=== PATIENT | male | born 1995 | race Caucasian/White ===

== ENCOUNTER → 2023-01-03 | Outpatient (CLI) | payer BC, SELFPAY ==
[2023-01-03 10:19] LABS: T4 Free Direct 1.25 ng/dL (0.76-1.46); Thyroid Stim Hormone (TSH) 0.78 uIU/mL (0.358-3.74)
== END | disposition home or self-care (01) ==
LOC: LAB 09:45
PROVIDERS: PCP Nurse Practitioner Family; Referring Provider Internal Medicine Endocrinology, Diabetes & Metabolism; Visit Provider Internal Medicine Endocrinology, Diabetes & Metabolism
DX: E03.8 Other specified hypothyroidism (principal); E06.3 Autoimmune thyroiditis
CPT/HCPCS: 36415; 84439; 84443

== ENCOUNTER → 2023-04-28 | Outpatient (CLI) | payer BC, SELFPAY ==
--- NOTE | 2023-04-28 17:26 | US_ITS ---
STUDY: THYROID ULTRASOUND REASON FOR EXAM: Male, 27 years old. NONTOXIC DIFFUSE GOITER TECHNIQUE: Ultrasound evaluation of the thyroid was performed with real-time and static miranda-scale imaging. COMPARISON: None. FINDINGS: RIGHT LOBE: The right lobe of the thyroid gland is enlarged and measures 5.8 cm x 2.1 cm x 2.2 cm. There is a heterogeneous echotexture. There are no demonstrated solid, cystic or complex lesions. LEFT LOBE: The left lobe of the thyroid gland is enlarged and measures 5.5 cm x 1.8 cm x 1.9 cm. There is a heterogeneous echotexture. There are no demonstrated solid, cystic or complex lesions. ISTHMUS: The isthmus measures 4.6 mm. The regional lymph nodes are normal. US/Thyroid IMPRESSION: Diffuse heterogeneous enlargement of the thyroid Electronically Signed: Salvador Campbell MD at 15:14 EST ,
== END | disposition home or self-care (01) ==
LOC: US 17:23
PROVIDERS: PCP Nurse Practitioner Family; Referring Provider Internal Medicine Endocrinology, Diabetes & Metabolism; Visit Provider Internal Medicine Endocrinology, Diabetes & Metabolism
DX: E04.0 Nontoxic diffuse goiter (principal)
CPT/HCPCS: 76536

== ENCOUNTER 2023-12-25 06:22 | Emergency (ER) | payer BC, SELFPAY ==
[2023-12-25 06:23] VITALS: BP 160/103; PULSE 94; RESP 16; TEMP 36.1; O2SAT 96; BMI 39.9
--- NOTE | 2023-12-25 06:36 | CT_ITS ---
STUDY: CT ABDOMEN AND PELVIS WITH CONTRAST REASON FOR EXAM: Male, 28 years old. RLQ PAIN. RADIATION DOSAGE (If Supplied By Facility): CTDIvol = ( 15.37 ) mGy, DLP = ( 1462.14 ) mGycm TECHNIQUE: Transaxial images were obtained from the dome of the diaphragm to the symphysis pubis without oral contrast. IV 100mL Isovue-[id number] was administered. Sagittal and coronal images were reconstructed. Individualized dose optimization techniques were used for this CT. COMPARISON: None. FINDINGS: The visualized lung bases are unremarkable. The visualized portions of the heart are within normal limits. There is decreased attenuation of the liver consistent with steatosis. Normal gallbladder and extrahepatic biliary system. Normal spleen. Normal pancreas. Normal bilateral adrenal glands. Mild degree of right hydronephrosis and right hydroureter due to a 3.5 mm calculus in the midportion of the right ureter. Normal left kidney. Normal visualized stomach. Normal small intestine. Normal colon. The appendix is visualized and appears normal. Normal abdominal aorta. Normal inferior vena cava. Normal retroperitoneum. Normal urinary bladder. Small benign-appearing bilateral inguinal lymph nodes. Normal osseous structures. CT/Abdomen/Pelvis W IV Cont ONLY IMPRESSION: 3.5 mm calculus in the midportion of the right ureter causing mild degree of right hydronephrosis and right hydroureter. Diffuse fatty infiltration of the liver. Electronically Signed: Salavdor Campbell MD at 8:03 EDT ,
--- NOTE | 2023-12-25 06:37 | ED.VIS.GI ---
HPI HPI - GI History of Present Illness Chief Complaint: Abd Pain Informant: patient and spouse/S.O. Narrative Narrative: Presenting awakening 3 AM pain right lower quadrant mild pain to the back. He urinated without any issues. Last bowel movement yesterday evening nonbloody. Daily bowel movements. No fevers. Nausea without vomiting. No abdominal surgeries in the past. Allergy minocycline. 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 No medications taken prior to arrival. Reports pain is dull and achy. 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 HTN (hypertension) Ana's disease Hypothyroid Encounter for examination required by Department of Transportation (DOT) Home Medications ?Medication ?Instructions ?Recorded ?Last Taken ?Type amlodipine 10 mg tablet 10 mg PO DAILY 07/31/22 Unknown History ibuprofen 600 mg tablet 600 mg PO Q6H PRN PRN pain #20 12/25/23 Unknown Rx TABLETS levothyroxine 200 mcg tablet 200 mcg PO DAILY 12/25/23 Unknown History ondansetron 4 mg disintegrating 4 mg PO Q8H PRN PRN Nausea #10 tabs 12/25/23 Unknown Rx tablet oxycodone-acetaminophen 5 mg-325 1 tab PO Q6H PRN PRN Pain 3 days 12/25/23 Unknown Rx mg tablet #12 TABLETS Allergy/AdvReac Type Severity Reaction Status Date / Time minocycline Allergy Hives Verified 12/25/23 06:23 Family History Father Hypertension Mother Thyroid disorder Other Cancer Surgical History History of tonsillectomy and adenoidectomy Social History household members: spouse housing: house Smoking Status: Current every day smoker tobacco type: smokeless tobacco alcohol intake: never substance use type: does not use caffeine: No what type of physical activity do you participate in: none do you feel safe at home: Yes ROS ROS ED Constitutional Constitutional ED: Denies chills, fever(s) or sweats Eyes Eyes: Denies change in vision ENT ENT ED: Denies dysphagia or sore throat Cardiovascular Cardiovascular: Denies chest pain, leg edema, palpitations or racing heartbeat Respiratory/Chest Respiratory/Chest: Denies cough, dyspnea or dyspnea on exertion Gastrointestinal Gastrointestinal: Reports abdominal pain and nausea; Denies diarrhea or vomiting Genitourinary Genitourinary ED: Denies dysuria, hematuria or urinary frequency Musculoskeletal Musculoskeletal: Denies back pain, extremity pain or neck pain Integumentary Denies rash or wounds Neurologic Neurologic: Denies headache(s), paresthesias or weakness EXAM Physical Exam Const Vital Signs: 12/25/23 06:23 12/25/23 08:23 Temperature 97 F L Temperature Source Temporal Pulse Rate 94 88 Respiratory Rate 16 16 Blood Pressure 160/103 H 138/84 H Blood Pressure Mean 122 102 Pulse Ox 96 94 Oxygen Delivery Method Room Air Positive well nourished and well developed General Appearance ED: well developed and NAD HEENT Reports moist mucous membranes normocephalic and atraumatic Eyes EOMs intact bilaterally and conjunctivae normal General Eye ED: Yes normal appearance of both eyes Neck no lymphadenopathy and supple General: Negative for tenderness Chest Wall Chest: Negative for tenderness Resp normal respiratory effort and normal air movement Effort and Inspection: symmetric chest movement; Negative for respiratory distress Cardio regular rate, regular rhythm and no murmurs Peripheral Pulses: pulses 2+ throughout GI normal to inspection, nondistended, normoactive bowel sounds GI Narrative: Tender palpation right lower quadrant. Negative West's. No guarding or rebound. Negative Rovsing's. Palpation: Negative for guarding or rebound tenderness present Back/Spine no CVA tenderness and no thoracic nor lumbar tenderness Extremity normal to inspection General Extremety ED: Negative for edema or tenderness General Extremity: Negative for edema Neuro oriented x3 and no sensory deficits noted Sensorium / Orientation: awake and alert Skin no rashes or lesions noted and no wounds MDM MDM MDM Narrative Medical decision making narrative: Interventions / MDM: Differential diagnosis: Kidney stone Diagnosis considered but do not suspect: Appendicitis however CT normal. My EKG interpretation: N/A Imaging independently reviewed and interpreted by myself: CT abdomen pelvis IV contrast: Normal appendix, 3.5 mm right mid ureteral stone with mild hydronephrosis. External documents reviewed: N/A Test considered but not ordered:N/A ED course: Tender right lower quadrant dull aching sensation. Basic labs urine ordered. IV established fluids Toradol Zofran. CT scan abdomen pelvis IV contrast ordered for further evaluation. Pain controlled on reevaluation. Labs normal white count urine with hematuria no infection. CT scan normal appendix, mid ureteral stone noted. Urine strainer for home. Prescription for pain control and antiemetics. Follow-up with urology as an outpatient. Return precautions. All questions were answered. Re-evaluation: stable Disposition discussed with patient/family/significant other: Patient and significant other Case discussed with consulting clinician: N/A This note was generated with DrDoctor dictation software. It may contain incorrect words, spelling, and punctuation that were not noted in checking the note before signing. Lab Data Attestation: I reviewed the patient's lab results. Labs: Laboratory Results - last 24 hr 12/25/23 12/25/23 06:50 07:10 WBC 8.7 RBC 5.39 Hgb 15.7 Hct 46.0 MCV 85.3 MCH 29.1 MCHC 34.1 RDW Std Deviation 40.0 RDW Coeff of Vicky 13.1 Plt Count 275 MPV 9.9 Immature Gran % (Auto) 0.500 Neut % (Auto) 75.9 H Lymph % (Auto) 16.6 L [place] % (Auto) 6.0 Eos % (Auto) 0.7 Baso % (Auto) 0.3 Absolute Neuts (auto) 6.6 Absolute Lymphs (auto) 1.44 Nucleated RBC % 0 Sodium 138 Potassium 4.4 Chloride 106 Carbon Dioxide 26.0 Anion Gap 6 BUN 20 H Creatinine 1.20 Estim Creat Clear Calc 115.93 Est GFR (MDRD) Af Amer 93 Est GFR (MDRD) Non-Af 77 BUN/Creatinine Ratio 16.7 Glucose 133 H Calcium 9.7 Urine Color Yellow Urine Clarity Sl. Cloudy Urine pH 7.0 Ur Specific [place] 1.015 Urine Protein 30 H Urine Glucose (UA) Normal Urine Ketones Negative Urine Occult Blood 250 H Urine Nitrite Negative Urine Bilirubin Negative Urine Urobilinogen Normal Ur Leukocyte Esterase Negative Urine RBC > 100 SEEN Urine WBC 0 SEEN Ur Squamous Epith Cells 0 SEEN Amorphous Sediment 2+ Urine Bacteria 1+ Urine Mucus 0 SEEN Radiography Diagnostic Testing: Clinical Impression(s) from Imaging Studies Abdomen/Pelvis CT 12/25/23 06:36 IMPRESSION: 3.5 mm calculus in the midportion of the right ureter causing mild degree of right hydronephrosis and right hydroureter. Diffuse fatty infiltration of the liver. Electronically Signed: Salvador Campbell MD at 8:03 EDT , Discharge Plan Triage Chief Complaint: Abd Pain ED Provider: Juan A Fung Dx/Rx/DC Orders Clinical Impression: Kidney stone on right side, Hematuria Instructions: ED Hematuria, ED Kidney Stone with Pain Prescriptions: New oxycodone-acetaminophen 5-325 mg tablet 1 tab PO Q6H PRN PRN (Reason: Pain) 3 Days Qty: 12 0RF ibuprofen 600 mg tablet 600 mg PO Q6H PRN PRN (Reason: pain) Qty: 20 0RF ondansetron 4 mg tablet,disintegrating 4 mg PO Q8H PRN PRN (Reason: Nausea) Qty: 10 0RF No Action amlodipine 10 mg tablet 10 mg PO DAILY Patient Comments: TAKE 1 TABLET BY MOUTH EVERY DAY levothyroxine 200 mcg tablet 200 mcg PO DAILY Primary Care Provider: Katy Fuller Referrals: Katy Fuller, ISIAH-C [Primary Care Provider] - Hosea Walls MD [Med Staff - Active Staff] - 1 Week Activity Restrictions/Additional Instructions: 3.5 mm stone right mid ureteral. Urine with blood and no infection. Strain your urine. Take medication as prescribed. If symptoms worsen not controlled with medication return to the ED for reevaluation. Print Language: Fijian Disposition Disposition: Home, Self Care Discharge Date/Time: 12/25/23 08:26
[2023-12-25] MEDS: Ketorolac 15 MG/ML Vial IV (06:53)
[2023-12-25] MEDS: Ondansetron 4 MG/2 ML Vial IV (06:53)
[2023-12-25] MEDS: 0.9% Normal Saline (1000mL) 1,000 ML 125 ML IV (06:53)
[2023-12-25 07:07] LABS: Absolute Lymphocyte Count 1.44 X10^3/uL (0.83-4.51); Absolute Neutrophil Count 6.6 X10^3/uL (2.0-7.7); Basophil# 0.03 X10^3/uL; Basophil% 0.3 % (0-1); Eosinophil# 0.06 X10^3/uL; Eosinophils% 0.7 % (0-5); Hemoglobin 15.7 g/dL (13.0-16.5); Lymphocyte # 1.44 X10^3/ul (0.83-4.51); Lymphocyte % 16.6 % (19-41); Mean Corp Hgb Conc 34.1 g/dL (32-36); Mean Corpuscular Hgb 29.1 pg (27.0-32.0); Mean Corpuscular Volume 85.3 fL (80-94); Mean Platelet Vol. 9.9 fl (6.2-12.0); Monocyte# 0.52 X10^3/uL; NRBC Flagged by Analyzer 0 % (0-5); Neutrophil # 6.58 X10^3/uL (2.7-7.7); Neutrophil % 75.9 % (47-70); Platelet Count 275 K/mm3 (150-450); RBC Distribution Width CV 13.1 % (11.6-14.6); Red Blood Count 5.39 M/mm3 (4.6-6.2); White Blood Count 8.7 K/mm3 (4.4-11.0)
[2023-12-25 07:14] LABS: Mucous, Urine 0 SEEN /hpf (<or=2+); Squamous Epithelial Cells - UA 0 SEEN /hpf (0-5); White Blood Cells 0 SEEN /hpf (0-5)
[2023-12-25 07:21] LABS: Anion Gap 6 (5-15); BUN 20 mg/dL (7-18); BUN/Creat Ratio 16.7 RATIO (10-20); Calcium,Total 9.7 mg/dL (8.5-10.1); Chloride 106 mmol/L (98-107); EST Glomerular Filtration Rate 77 mL/min (>60); Est Glom Filt Rate - Afr Amer 93 mL/min (>60); Estimated Creatinine Clearance 115.93 ml/min; Glucose 133 mg/dL (74-106); Potassium 4.4 mmol/L (3.5-5.1); Sodium Level 138 mmol/L (136-145)
[2023-12-25 07:24] LABS: Color, Urine Yellow (Yellow); Glucose, Dipstick Normal (Normal); Ketone-Dipstick Negative (Negative); Leukocyte Esterase-Dipstick Negative /ul (Negative); Nitrite-Dipstick Negative (Negative); Occult Blood-Urine 250 /ul (Negative); Protein-Dipstick 30 mg/dl (Negative); Specific Gravity, Urine 1.015 (1.002-1.030); Urine Bilirubin Dipstick Negative (Negative); Urine Clarity Sl. Cloudy (Clear); Urine Urobilinogen Normal (Normal)
[2023-12-25 07:39] LABS: Amorphous Sediment 2+; Bacteria 1+ /hpf (None Seen); Red Blood Cells-Urine > 100 SEEN /hpf (0-5)
[2023-12-25 08:23] VITALS: BP 138/84; PULSE 88; RESP 16; O2SAT 94
== END 2023-12-25 08:26 | disposition home or self-care (01) ==
PROVIDERS: Emergency Provider Emergency Medicine; PCP Nurse Practitioner Family; Visit Provider Emergency Medicine
DX: N13.2 Hydronephrosis with renal and ureteral calculous obstruction (principal); R31.9 Hematuria, unspecified; I10 Essential (primary) hypertension; E03.9 Hypothyroidism, unspecified
CPT/HCPCS: 74177; 80048; 81001; 85025; 96361; 96374; 96375; 99283; J7030; Q9967; A4216; J2405

== ENCOUNTER 2023-12-26 11:00 | Observation (INO) | payer BC, SELFPAY ==
[2023-12-26 11:01] VITALS: BP 144/96; PULSE 76; RESP 15; TEMP 36.4; O2SAT 95; BMI 39.5
[2023-12-26 11:11] VITALS: BP 144/76; PULSE 88; RESP 16; O2SAT 95
--- NOTE | 2023-12-26 11:26 | EX.ED.DYSGE1 ---
HPI History of Present Illness Chief Complaint: Flank Pain Narrative Narrative: 28-year-old male presents with right flank pain that is intractable as he was diagnosed with a kidney stone in the mid right ureter yesterday. He states he was sent home with nausea medication, ibuprofen, and oxycodone. He is taking the medicine without relief. He states that he can last for up to 2 hours which knocks down his pain, then the pain returns full force. He presents here at the direction of the urologist, Dr. Walls, for pain control and possible admission. 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 HTN (hypertension) Ana's disease Hypothyroid Encounter for examination required by Department of Transportation (DOT) Home Medications ?Medication ?Instructions ?Recorded ?Last Taken ?Type amlodipine 10 mg tablet 10 mg PO DAILY 07/31/22 Unknown History ibuprofen 600 mg tablet 600 mg PO Q6H PRN PRN pain #20 12/25/23 Unknown Rx TABLETS levothyroxine 200 mcg tablet 200 mcg PO DAILY 12/25/23 Unknown History ondansetron 4 mg disintegrating 4 mg PO Q8H PRN PRN Nausea #10 tabs 12/25/23 Unknown Rx tablet oxycodone-acetaminophen 5 mg-325 1 tab PO Q6H PRN PRN Pain 3 days 12/25/23 Unknown Rx mg tablet #12 TABLETS Allergy/AdvReac Type Severity Reaction Status Date / Time minocycline Allergy Hives Verified 12/25/23 06:23 Family History Father Hypertension Mother Thyroid disorder Other Cancer Surgical History History of tonsillectomy and adenoidectomy Social History household members: spouse housing: house Smoking Status: Current every day smoker tobacco type: smokeless tobacco alcohol intake: never substance use type: does not use caffeine: No what type of physical activity do you participate in: none do you feel safe at home: Yes ROS ROS ED ROS Narrative Constitutional: No fever, no chills. HEENT: No sore throat. No neck pain. No loss of vision. No rhinorrhea. Cardiovascular: No chest pain. No palpitations. No pedal edema. Respiratory: No cough, no shortness of breath. Abdominal: No abdominal pain. Positive right flank pain. Genitourinary: No dysuria. No hematuria. Musculoskeletal: No myalgias. No arthralgias. Neurologic: No headaches. No dizziness. No lightheadedness. Skin: No rash. No change in color. Psychiatric: No depression. No anxiety. EXAM Physical Exam Narrative Exam Narrative: Afebrile. Vital signs noted. Regular rate and rhythm. Lungs clear to auscultation bilaterally. Abdomen soft nontender with normoactive bowel sounds. Lying comfortably on cot. Neurological examination nonfocal and nonlateralizing. Const Vital Signs: 12/26/23 11:01 12/26/23 11:11 12/26/23 13:01 Temperature 97.5 F L Temperature Source Temporal Pulse Rate 76 88 81 Respiratory Rate 15 16 18 Blood Pressure 144/96 H 144/76 H 123/78 H Blood Pressure Mean 112 98 93 Pulse Ox 95 95 94 Oxygen Delivery Method Room Air Room Air MDM MDM MDM Narrative Medical decision making narrative: I reviewed the patient's prior visit and laboratory work. He had a creatinine of 1.20. CT did show a 3.5 mm mid ureteral stone. I discussed the patient with Dr. Walls. He will be given a liter of IV fluids, morphine, Toradol, and a Flomax as in review of his medications, he had not been given a prescription for Flomax. He will be reassessed after pain medications. It was not felt that he needed a repeat CT scan or laboratory work currently. After Toradol, morphine, IV fluids, and Flomax, repeat examination shows him resting comfortably, however he states that when the pain medication wears off, he has intractable pain. He requested something stronger than Percocet for possible home use, but I told him that there was not much more that I could write for him. I was going to add Flomax as well. However, after discussion with his , the patient states that he was to be admitted. I discussed the patient with Dr. Walls who will assign him to observation for stenting as needed. Disposition is assigned observation. Patient is in stable condition. History & Record Review Discussion w/independent historian: Patient Additional record(s) reviewed:: Prior ED visit and Prior labs Management Discussion w/another healthcare provider: Chief Operations Officer (Dr. Walls) Discharge Plan Dx/Rx/DC Orders Clinical Impression: Kidney stone on right side, Intractable pain Disposition Disposition: Acute Care Hospital [facility]
[2023-12-26] MEDS: 0.9% Normal Saline (1000mL) 1,000 ML 999 ML IV (11:37)
[2023-12-26] MEDS: Morphine 4 MG/ML Syringe IV ×2 (11:38→13:56)
[2023-12-26] MEDS: Ketorolac 30 MG/ML Syringe IV (11:38)
[2023-12-26] MEDS: Tamsulosin HCl 0.4 MG Capsule PO ×2 (12:03→21:45)
[2023-12-26 13:01] VITALS: BP 123/78; PULSE 81; RESP 18; O2SAT 94
--- NOTE | 2023-12-26 13:59 | NURSING ---
MED SURG OBS BLAINE INTRACTABLE PAIN, URETERAL STONE, RIGHT
[2023-12-26 14:01] VITALS: BP 132/91; PULSE 88; RESP 17; TEMP 36.6; O2SAT 96
[2023-12-26 15:30] VITALS: BMI 39.5
[2023-12-26] MEDS: Lactated Ringers 1,000 ML 150 ML IV ×2 (16:09→21:45)
[2023-12-26] MEDS: 0.9% Saline Lock 10 ML Syringe IV (16:10)
[2023-12-26] MEDS: Morphine 2 MG/ML Syringe IV ×2 (16:10→20:17)
[2023-12-26 20:00] VITALS: BP 127/79; PULSE 76; RESP 16; TEMP 36.9; O2SAT 96
[2023-12-26] MEDS: Phenazopyridine 95 MG Tablet PO (20:16)
[2023-12-26] MEDS: Ketorolac 15 MG/ML Vial IV (20:16)
[2023-12-27 02:30] VITALS: BP 126/71; PULSE 71; RESP 16; TEMP 36.7; O2SAT 97
[2023-12-27] MEDS: Lactated Ringers 1,000 ML 150 ML IV ×3 (05:27→17:36)
--- NOTE | 2023-12-27 06:35 | RAD_ITS ---
EXAM: XR ABDOMEN, 1 VIEW CLINICAL INDICATION: kidney stone TECHNIQUE: Frontal supine view of the abdomen/pelvis. COMPARISON: No relevant prior studies available. FINDINGS: LOWER THORAX: No acute pathology. GASTROINTESTINAL TRACT: Unremarkable. Non-obstructive. No bowel or stomach distention. ORGANS: Unremarkable as visualized. No organomegaly. No abnormal calcifications. BONES/JOINTS: No acute pathology. SOFT TISSUES: No acute pathology. RAD/Abdomen Single View IMPRESSION: Non-obstructive bowel gas pattern. Electronically Signed: Feliciano Iniguez MD at 18:07 EDT ,
[2023-12-27] MEDS: Morphine 2 MG/ML Syringe IV ×2 (06:49→12:26)
[2023-12-27 08:07] VITALS: BP 135/83; PULSE 71; RESP 16; TEMP 36.8; O2SAT 96
[2023-12-27] MEDS: Tamsulosin HCl 0.4 MG Capsule PO ×2 (09:10→21:53)
--- NOTE | 2023-12-27 10:40 | PCM.HP.STD ---
HPI - General General Date of Admission: 12/26/23 Date of Service: 12/26/23 Chief Complaint: Right kidney stone HPI Narrative PABLITO BACA, is a 28 M who presents with a 4 to 5 mm stone in the mid right ureter he had severe intractable pain presented back to the emergency room with pain and we admitted the patient for pain control. We have been straining his urine he is on Flomax morphine for pain this morning looks comfortable no fevers or chills no signs of sepsis pain is under control. Still does not think he has passed a stone. KUB today I could not see the stone on x-ray. 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 HTN (hypertension) Ana's disease Hypothyroid Encounter for examination required by Department of Transportation (DOT) Home Medications ?Medication ?Instructions ?Recorded ?Last Taken ?Type amlodipine 10 mg tablet 10 mg PO DAILY 07/31/22 12/26/23 10:00 History 10 mg ibuprofen 600 mg tablet 600 mg PO Q6H PRN PRN pain #20 12/25/23 Unknown Rx TABLETS levothyroxine 200 mcg tablet 200 mcg PO DAILY 12/25/23 12/26/23 06:00 History 200 mcg ondansetron 4 mg disintegrating 4 mg PO Q8H PRN PRN Nausea #10 tabs 12/25/23 12/26/23 08:00 Rx tablet 4 mg oxycodone-acetaminophen 5 mg-325 1 tab PO Q6H PRN PRN Pain 3 days 12/25/23 12/26/23 10:00 Rx mg tablet #12 TABLETS 1 TAB Allergy/AdvReac Type Severity Reaction Status Date / Time minocycline Allergy Hives Verified 12/25/23 06:23 Family History Father Hypertension Mother Thyroid disorder Other Cancer Surgical History History of tonsillectomy and adenoidectomy Social History household members: spouse housing: house Smoking Status: Current every day smoker tobacco type: smokeless tobacco alcohol intake: never substance use type: does not use caffeine: No what type of physical activity do you participate in: none do you feel safe at home: Yes ROS Constitutional Constitutional: Denies chills, fever(s) or malaise Eyes Eyes: Denies blurry vision or change in vision ENT HEENT: Reports none Cardiovascular Cardiovascular: Denies chest pain or palpitations Respiratory/Chest Respiratory/Chest: Denies cough or shortness of breath with exertion Gastrointestinal Gastrointestinal: Denies abdominal pain, constipation or diarrhea Musculoskeletal Musculoskeletal: Denies back pain, joint stiffness or joint swelling Integumentary Integumentary: Denies dry skin, jaundice, lesions or rash Neurologic Neurologic: Denies confusion, syncope or weakness Psychiatric Psychiatric: Reports none; Denies anxiety or depression Endocrine Endocrinology: Denies excessive sweating, fatigue or flushing Hematologic/Lymphatic Hematologic/Lymphatic: Denies anemia, easy bleeding or easy bruising Vital Signs Vital Signs Vital Signs: 12/26/23 11:01 12/26/23 11:11 12/26/23 13:01 Temperature 97.5 F L Temperature Source Temporal Pulse Rate 76 88 81 Pulse Strength Respiratory Rate 15 16 18 Respiratory Effort Respiratory Depth Respiratory Pattern Blood Pressure 144/96 H 144/76 H 123/78 H Blood Pressure Mean 112 98 93 Blood Pressure Source Blood Pressure Position Blood Pressure Location Pulse Ox 95 95 94 Oxygen Delivery Method Room Air Room Air 12/26/23 14:01 12/26/23 20:00 12/26/23 20:10 Temperature 97.8 F 98.5 F Temperature Source Oral Pulse Rate 88 76 Pulse Strength Respiratory Rate 17 16 Respiratory Effort Normal Respiratory Depth Normal Respiratory Pattern Blood Pressure 132/91 H 127/79 H Blood Pressure Mean 104 95 Blood Pressure Source Monitor Blood Pressure Position Semi-Fowlers Blood Pressure Location Left Arm Pulse Ox 96 96 Oxygen Delivery Method Room Air Room Air 12/26/23 22:00 12/27/23 02:30 12/27/23 03:00 Temperature 98.0 F Temperature Source Oral Pulse Rate 71 Pulse Strength Normal (2+) Respiratory Rate 16 Respiratory Effort Normal Respiratory Depth Normal Respiratory Pattern Normal Blood Pressure 126/71 H Blood Pressure Mean 89 Blood Pressure Source Monitor Blood Pressure Position Semi-Fowlers Blood Pressure Location Left Arm Pulse Ox 97 Oxygen Delivery Method Room Air Room Air 12/27/23 08:07 Temperature 98.2 F Temperature Source Oral Pulse Rate 71 Pulse Strength Respiratory Rate 16 Respiratory Effort Respiratory Depth Respiratory Pattern Blood Pressure 135/83 H Blood Pressure Mean 100 Blood Pressure Source Monitor Blood Pressure Position Semi-Fowlers Blood Pressure Location Left Arm Pulse Ox 96 Oxygen Delivery Method Room Air Weight Weight: 117.93 kg Body Mass Index (BMI) 39.5 Physical Exam Const alert and oriented x3 General Appearance: cooperative HEENT normocephalic, head/scalp atraumatic, EAC's normal and TM's normal bilaterally Eyes PERRL and EOMs intact bilaterally Pupil: sluggish Neck no lymphadenopathy, supple and no JVD General: trachea midline Lymph Lymphatic: no lymphadenopathy noted, lymphedema and lymphadenopathy Resp normal respiratory effort, normal air movement and clear to auscultation bilaterally Cardio regular rate, regular rhythm and peripheral pulses 2+ throughout GI soft to palpation, non-tender and non-distended Extremity normal capillary refill and no clubbing, cyanosis or edema General Extremity: no tenderness to palpation of joints or extremities Skin no rashes or lesions noted General Skin Exam: turgor normal Lesions: no lesions Rashes: no rashes Neuro CN's II-XII intact bilaterally Speech: speech normal Motor Exam: strength 5/5 throughout; Negative for general weakness Psych thought process normal, cooperative and affect normal Appearance: appropriate Results Medical Records Data Attestation: I reviewed the patient's medical records Imaging KUB no visible stone Assessment & Plan Assessment/Plan (1) Kidney stone on right side: PLAN: Plan to watch him for another 24 hours he is really not that painful. May do reimaging tomorrow to see if he really still has a stone. Plan for surgical intervention tomorrow if the stone has not passed. N.p.o. at midnight
[2023-12-27 14:44] VITALS: BP 130/76; PULSE 78; RESP 16; TEMP 37.1; O2SAT 97
[2023-12-27] MEDS: Phenazopyridine 95 MG Tablet PO (15:01)
[2023-12-27] MEDS: Ketorolac 15 MG/ML Vial IV ×2 (15:02→21:53)
[2023-12-27] MEDS: 0.9% Saline Lock 10 ML Syringe IV (15:02)
[2023-12-27 20:30] VITALS: BP 135/80; PULSE 71; RESP 16; TEMP 36.8; O2SAT 93
[2023-12-27] MEDS: Polyethylene Glycol 3350 17 GM PACKET PO (21:53)
[2023-12-28] VITALS (7 sets, daily range): BP systolic 137–166; BP diastolic 78–91; PULSE 62–88; RESP 12–16; TEMP 36.4–37.4; O2SAT 88–97; BMI 39.5
[2023-12-28] MEDS: Lactated Ringers 1,000 ML 150 ML IV ×2 (00:35→07:04)
[2023-12-28] MEDS: Ketorolac 15 MG/ML Vial IV (05:27)
--- NOTE | 2023-12-28 06:00 | EKG12_ITS ---
Test Reason : PRE-OP Blood Pressure : / mmHG Vent. Rate : 059 BPM Atrial Rate : 059 BPM P-R Int : 160 ms QRS Dur : 112 ms QT Int : 396 ms P-R-T Axes : 011 000 012 degrees QTc Int : 392 ms Sinus bradycardia Otherwise normal ECG No previous ECGs available Confirmed by Thomas Christianson ([id number]), associate editor NELIDA STEWART ([id number]) on 12/29/2023 2:12:00 PM Referred By: CARLITA Confirmed By:Thomas Christianson
[2023-12-28] MEDS: Morphine 2 MG/ML Syringe IV ×2 (07:07→09:30)
[2023-12-28 07:19] LABS: Anion Gap 5 (5-15); BUN 11 mg/dL (7-18); BUN/Creat Ratio 11.6 RATIO (10-20); Calcium,Total 8.9 mg/dL (8.5-10.1); Chloride 106 mmol/L (98-107); Creatinine, Serum 0.95 mg/dL (0.70-1.30); EST Glomerular Filtration Rate 101 mL/min (>60); Est Glom Filt Rate - Afr Amer 122 mL/min (>60); Estimated Creatinine Clearance 145.73 ml/min; Glucose 89 mg/dL (74-106); Potassium 3.5 mmol/L (3.5-5.1); Sodium Level 141 mmol/L (136-145)
--- NOTE | 2023-12-28 07:48 | CT_ITS ---
STUDY: CT ABDOMEN AND PELVIS WITHOUT CONTRAST REASON FOR EXAM: Male, 28 years old. Kidney stone RADIATION DOSAGE (If Supplied By Facility): CTDIvol = ( 21.28 ) mGy, DLP = ( 1238.87 ) mGycm TECHNIQUE: Transaxial images were obtained from the dome of the diaphragm to the symphysis pubis without oral contrast, and without intravenous contrast. Sagittal and coronal images were reconstructed. Individualized dose optimization techniques were used for this CT. COMPARISON: Comparison is made with prior study dated December 25, 2023. FINDINGS: Minimal increased markings at the lung bases suggestive of atelectasis. The visualized portions of the heart are within normal limits. There is decreased attenuation of the liver consistent with steatosis. Normal gallbladder and extrahepatic biliary system. Normal spleen. Normal pancreas. Normal bilateral adrenal glands. Mild degree of a right hydronephrosis and right perinephric stranding. The previously seen 3.5 mm calculus is now at the base of the bladder on the right side in keeping with a recently passed right ureteral calculus. Mild residual fullness of the right ureter. Normal left kidney. Normal visualized stomach. Normal small intestine. Normal colon. The appendix is visualized and appears normal. Normal abdominal aorta. Normal inferior vena cava. Normal retroperitoneum. Normal urinary bladder. Small benign-appearing bilateral inguinal lymph nodes. Normal abdominal wall. Normal osseous structures. CT/Abdomen/Pelvis without Cont IMPRESSION: Mild residual right hydronephrosis and right hydroureter due to a recently passed 3.5 mm calculus which presently lies at the base of the bladder on the right side. Electronically Signed: Salvador Campbell MD at 9:01 EDT ,
--- NOTE | 2023-12-28 07:48 | PCM.PN.GU ---
Subjective Subjective looks comfortable but he states still having pain small stone will do CT scan this am if stone still there then place stent today Objective Data Objective Data Vital Signs: Vital Signs Temp Pulse Resp BP Pulse Ox O2 Del Method 97.9 F 65 16 157/84 H 97 Room Air 12/28/23 02:30 12/28/23 02:30 12/28/23 02:30 12/28/23 02:30 12/28/23 02:30 12/28/23 02:30 Oxygen Delivery Method Room Air Weight: 117.93 kg Body Mass Index (BMI) 39.5 Intake & Output: Intake and Output for Last 24 Hours 12/26/23 12/27/23 12/28/23 23:59 23:59 23:59 Intake Total 1840 / 2340 3625 / 3625 1972.5 / 1972.5 Output Total 650 / 650 1700 / 1700 700 / 700 Balance 1190 / 1690 1925 / 1925 1272.5 / 1272.5 Lab / Micro Data 12/28/23 05:59 Labs: Laboratory Results - last 24 hr 12/28/23 05:59: Sodium 141, Potassium 3.5, Chloride 106, Carbon Dioxide 30.0, Anion Gap 5, BUN 11, Creatinine 0.95, Estim Creat Clear Calc 145.73, Est GFR (MDRD) Af Amer 122, Est GFR (MDRD) Non-Af 101, BUN/Creatinine Ratio 11.6, Glucose 89, Calcium 8.9, TSH 1.50 Radiography Diagnostic Testing: Radiology Impression KUB X-Ray 12/27/23 06:35 IMPRESSION: Non-obstructive bowel gas pattern. Electronically Signed: Feliciano Iniguez MD at 18:07 EDT ,
--- NOTE | 2023-12-28 10:38 | NURSING ---
pt off floor for surgery
--- NOTE | 2023-12-28 10:45 | PRE.ANES_ITS ---
ASA Classification* ASA Classification ASA Classification: 3 and E Assessment & Plan Anesthesia* Anesthesia Assessment Anesthesia Assessment: Discussed sedation and/or anesthesia options, risks, benefits, and alternatives with patient/parents/legal guardian/POA. Questions invited. The patient/parents/legal guardian/POA seems to understand and agrees to proceed with anesthesia plan. Reviewed the physical assessment, medical history, allergy history and patient home medications list prior to surgery/procedure/anesthetic and documented any changes. Performed airway and anesthesia risk assessments. Anesthesia Type Anesthesia Type: MAC (*see written pre anesthesia record for full assessment) Anesthesia Focused Assessment* Temperature: 98.2 F Pulse Rate: 62 Blood Pressure: 142/84 Respiratory Rate: 16 Pulse Ox: 96 Airway Assessment Mouth opens: >3 cm Mallampati Score: II Focused Labs Anesthesia Preop lab: CBC WBC 8.7 K/mm3 (4.4-11.0) 12/25/23 06:50 RBC 5.39 M/mm3 (4.6-6.2) 12/25/23 06:50 Hgb 15.7 g/dL (13.0-16.5) 12/25/23 06:50 Hct 46.0 % (40-54) 12/25/23 06:50 Plt Count 275 K/mm3 (150-450) 12/25/23 06:50 CHEMISTRY Potassium 3.5 mmol/L (3.5-5.1) 12/28/23 05:59 Sodium 141 mmol/L (136-145) 12/28/23 05:59 BUN 11 mg/dL (7-18) 12/28/23 05:59 Creatinine 0.95 mg/dL (0.70-1.30) 12/28/23 05:59 Glucose 89 mg/dL (74-106) 12/28/23 05:59 TSH 1.50 uIU/mL (0.358-3.74) 12/28/23 05:59 COAG Pre-Assessment Diagnosis/Proposed Procedure Planned Operative Procedure(s): cysto stent Anesthesia History Anesthesia History - mannequin molder: Anesthesia History - mannequin molder Hx Hospitalization Any Problems With Anesthesia No 12/27/23 21:23 Cholinesterase deficiency No 12/27/23 21:23 You/Your Family Experience No 12/27/23 21:23 fever (hyperthermia) with Relationship Recent Exposure to Contagious No 12/27/23 21:23 Disease Does patient have nerve No 12/27/23 21:23 stimulator Patient instructed to have No 12/27/23 21:23 device shut off --Does patient have Pacemaker or ICD? When Was Last Pacemaker Check QUESTION #4 FULL TEXT: You/Your Family Experience fever (hyperthermia) with Anesthesia Last Oral Intake Last Oral intake: Last Oral Intake NPO since Meds taken in AM with sips of water? Meds patient instructed to take am of surgery PONV PONV - mannequin molder: PONV - mannequin molder Female HX of Motion Sickness HX of N/V After Surgery Non-Smoker Duration of Surgery greater than 60 minutes Number of Risk Factors PONV Score Height & Weight Height & Weight: Anesthesia: Height & Weight Height 5 ft 8 in 12/26/23 15:30 Weight: 117.93 kg 12/26/23 15:30 Body Mass Index (BMI) 39.5 12/26/23 15:30 Respiratory Assessment Respiratory Assessment - mannequin molder: Respiratory Tract Infection Hx - mannequin molder Hx Respiratory Tract Infection No 12/27/23 21:23 STOP Sleep Apnea STOP Sleep Apnea - mannequin molder: STOP Sleep Apnea - mannequin molder Hx Hypertension Yes 12/26/23 15:35 Hx Sleep Apnea No 12/26/23 15:35 CPAP BIPAP Do you snore loudly (louder Yes 12/26/23 15:35 than talking or can be heard Do you often feel tired/ No 12/26/23 15:35 fatigued/ sleepy during daytime? Has anyone observed you stop No 12/26/23 15:35 breathing during sleep? STOP Results Positive 12/26/23 15:35 QUESTION #5 FULL TEXT : Do you snore loudly (louder than talking or can be heard through closed doors)? 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 Specify any problems Hx of Preganancy in last 3 N/A 12/26/23 15:35 Months Nurse Filling Out Transfusion JDIAL 12/26/23 15:35 & Questions: Date: 12/26/23 12/26/23 15:35 Time: 15:37 12/26/23 15:35 Patient unable to answer at this time (ie. confused, unrespo /Reproduction History /Reproductive History - mannequin molder: /Reproductive Hx- mannequin molder Hx Now No 12/27/23 21:23 Gestational Age (in weeks): EDC: Hx Hx Para Hx Section SAB No 12/27/23 21:23 Active Medications Active Medications: Current Medications Generic Name Dose Route Start Last Admin Trade Name Freq PRN Reason Stop Dose Admin Amlodipine Besylate 10 mg 12/28/23 10:00 12/28/23 08:35 Amlodipine 10 Mg Tablet PO Not Given DAILY [facility] Protocol Lactated Ringer's 1,000 mls @ 150 mls/hr 12/26/23 16:00 12/28/23 10:37 IV 0 mls/hr .Q6H40M KAREN Infusion Ketorolac Tromethamine 15 mg 12/26/23 15:51 12/28/23 05:27 Ketorolac 15 Mg/Ml Vial IV 12/31/23 15:51 15 mg Q6H PRN PRN Administration Pain Score 4-10 Levothyroxine Sodium 200 mcg 12/28/23 06:00 12/28/23 05:13 Levothyroxine 100 Mcg Tablet PO Not Given DAILY@0600 KAREN Morphine Sulfate 2 mg 12/26/23 15:51 12/28/23 09:30 Morphine 2 Mg/Ml Syringe IV 2 mg Q2H PRN PRN Administration Pain Score 6-10 Ondansetron HCl 4 mg 12/27/23 10:47 Ondansetron 4 Mg/2 Ml Vial IV Q6H PRN PRN NAUSEA/VOMITING Phenazopyridine HCl 95 mg 12/26/23 15:51 12/27/23 15:01 Phenazopyridine 95 Mg Tablet PO 12/28/23 14:01 95 mg TID PRN Administration urinary symptoms Polyethylene Glycol 17 gm 12/27/23 22:00 12/28/23 08:35 Polyethylene Glycol 3350 17 Gm Packet PO Not Given BID KAREN Sodium Chloride 10 - 40 ml 12/26/23 15:41 12/27/23 15:02 0.9% Saline Lock 10 Ml Syringe IV 10 ml UD PRN Administration SALINE FLUSH Tamsulosin HCl 0.4 mg 12/26/23 22:00 12/28/23 08:35 Tamsulosin Hcl 0.4 Mg Capsule PO Not Given BID KAREN PFSH Medical History 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 HTN (hypertension) Ana's disease Hypothyroid Encounter for examination required by Department of Transportation (DOT) Home Medications ?Medication ?Instructions ?Recorded ?Last Taken ?Type amlodipine 10 mg tablet 10 mg PO DAILY 07/31/22 12/26/23 10:00 History 10 mg ibuprofen 600 mg tablet 600 mg PO Q6H PRN PRN pain #20 12/25/23 Unknown Rx TABLETS levothyroxine 200 mcg tablet 200 mcg PO DAILY 12/25/23 12/26/23 06:00 History 200 mcg ondansetron 4 mg disintegrating 4 mg PO Q8H PRN PRN Nausea #10 tabs 12/25/23 12/26/23 08:00 Rx tablet 4 mg oxycodone-acetaminophen 5 mg-325 1 tab PO Q6H PRN PRN Pain 3 days 12/25/23 12/26/23 10:00 Rx mg tablet #12 TABLETS 1 TAB Allergy/AdvReac Type Severity Reaction Status Date / Time minocycline Allergy Hives Verified 12/28/23 10:57 Family History Father Hypertension Mother Thyroid disorder Other Cancer Surgical History History of tonsillectomy and adenoidectomy Social History household members: spouse housing: house Smoking Status: Current every day smoker tobacco type: smokeless tobacco alcohol intake: never substance use type: does not use caffeine: No what type of physical activity do you participate in: none do you feel safe at home: Yes Review of Systems (Anesthesia) ROS Narrative System reviewed and no additional complaints, except as documented.
[2023-12-28] MEDS: Lactated Ringers 1,000 ML 15 ML IV (10:58)
--- NOTE | 2023-12-28 12:35 | DCINST_ITS ---
Discharge Instructions Diet Discharge Diet: No restrictions Activity Discharge Activity: Return to Normal Activity and May Not Drive (while taking narcotic pain medications.) Dressing / Incision Call your doctor if you observe: Fever of 101 or Higher Follow Up Care Please Follow Up With: Hosea Walls MD When: Call [phone] for an appointment Test Results: Test results from this visit will be discussed in further detail at your follow- up appointment, if applicable. Discharge Plan Admission Admit Date/Time: 12/26/23 14:00 Attending Provider: Hosea Walls Primary Care Provider: Katy Fuller Discharge Orders/Prescriptions Prescriptions: New ibuprofen 600 mg tablet 600 mg PO Q6H PRN (Reason: fever or pain) Qty: 20 0RF No Action amlodipine 10 mg tablet 10 mg PO DAILY Patient Comments: TAKE 1 TABLET BY MOUTH EVERY DAY levothyroxine 200 mcg tablet 200 mcg PO DAILY oxycodone-acetaminophen 5-325 mg tablet 1 tab PO Q6H PRN PRN (Reason: Pain) 3 Days Qty: 12 0RF ibuprofen 600 mg tablet 600 mg PO Q6H PRN PRN (Reason: pain) Qty: 20 0RF ondansetron 4 mg tablet,disintegrating 4 mg PO Q8H PRN PRN (Reason: Nausea) Qty: 10 0RF Referrals / Follow Up: Katy Fuller NP-C [Primary Care Provider] - Disposition Discharge Orders: Discharge Patient (Routine); Ordered 12/28/23 Ordered By: Dr. Hosea Walls
--- NOTE | 2023-12-28 12:35 | OP.PCM_ITS ---
Report of Operation Date of Procedure: 12/28/23 Pre-Operative Diagnosis: Right ureteral calculi with obstruction Post-Operative Diagnosis: The same Surgery/Procedure Performed:: Cystoscopy, balloon dilation of right ureter, right ureteroscopy basket extraction of stone no stent Description of Surgical Findings:: Patient was taken back to the operative room at a smooth induction of anesthesia he was placed in dorsolithotomy position. Went of the bladder with a 21 Hungarian rigid cystourethroscope identified the right ureteral orifice advanced a wire up the right ureter we advanced a 12 Hungarian balloon dilator right up to the stone balloon dilated the distal right ureter I then left the wire in place I was able to go in next to the wire then with a SlimLine 7 Hungarian semirigid ureteroscope was able to see the stone quite easily I then used a nitinol tipless basket and was able to basket the stone and pulled it out. Patient bladder was then drained patient anesthetic was reversed reversed no stent was placed successful basket extraction of stone and he was taken back to PACU in good condition to follow-up in the office in a month for checkup Surgeon: Hosea Walls Type of Anesthesia: General Drains: none Admit VTE Documentation VTE Present on Admission: No VTE Mechan Device Prophylaxis: SCD's VTE Pharm Prophylaxis ordered?: No
--- NOTE | 2023-12-28 12:49 | PCM.POST.ANE ---
Anesthesia: Postop Eval I Current Vital Signs Temperature: 99.3 F Pulse Rate: 78 Blood Pressure: 137/81 Respiratory Rate: 16 Pulse Ox: 93 Oxygen Delivery Method: Nasal Cannula Oxygen Flow Rate (L/min): 4 Assessment Airway patent: Yes Spontaneous unlabored respirations: Yes Mental status: Awake and Calm nausea: No Vomiting: No Anesthesia Complication: No Fluid Hydration Crystalloid volume administer (ml): 700 Total IV fluid infused: 700 Progress Note Anesthesia document: Postop Eval 1 completed: Yes
--- NOTE | 2023-12-28 14:06 | POSTOPAN2_ITS ---
Anesthesia Postop Eval I Sum Postop Eval Completion status Anesthesia document: Postop Eval 1 completed: Yes Anesthesia Postop Eval I Summary Anesthesia Postop Eval I Summary: Anesthesia Postop Eval I: Assessment Summary Airway patent Yes 12/28/23 12:50 [email or web address] [email or web address] Spontaneous unlabored Yes 12/28/23 12:50 COAL [email or web address] respirations Mental status Awake,Calm 12/28/23 12:50 COAL [email or web address] nausea No 12/28/23 12:50 COAL [email or web address] Vomiting No 12/28/23 12:50 COAL [email or web address] Anesthesia Postop Eval I: Fluid Summary Crystalloid volume administer 700 12/28/23 12:50 COAL [email or web address] (ml) Colloids volume administered ( ml) Blood Product volume administered (ml) Total IV fluid infused 700 12/28/23 12:50 COAL [email or web address] Anesthesia Postop Eval I: Summary Notes Anesthesia Complication No 12/28/23 12:50 COAL [email or web address] Anesthesia Complication Comment: Post-operative progress note Anesthesia: Postop Eval II Evaluation Mental status: Awake and Calm Pain Level: 1 nausea: No Vomiting: No Complications Anesthesia Complication: No
--- NOTE | 2023-12-28 14:06 | PCM.POSTANE2 ---
Anesthesia Postop Eval I Sum Postop Eval Completion status Anesthesia document: Postop Eval 1 completed: Yes Anesthesia Postop Eval I Summary Anesthesia Postop Eval I Summary: Anesthesia Postop Eval I: Assessment Summary Airway patent Yes 12/28/23 12:50 [email or web address] Spontaneous unlabored Yes 12/28/23 12:50 [email or web address] respirations Mental status Awake,Calm 12/28/23 12:50 [email or web address] nausea No 12/28/23 12:50 [email or web address] Vomiting No 12/28/23 12:50 [email or web address] Anesthesia Postop Eval I: Fluid Summary Crystalloid volume administer 700 12/28/23 12:50 [email or web address] (ml) Colloids volume administered ( ml) Blood Product volume administered (ml) Total IV fluid infused 700 12/28/23 12:50 [email or web address] Anesthesia Postop Eval I: Summary Notes Anesthesia Complication No 12/28/23 12:50 [email or web address] Anesthesia Complication Comment: Post-operative progress note Anesthesia: Postop Eval II Evaluation Mental status: Awake and Calm Pain Level: 1 nausea: No Vomiting: No Complications Anesthesia Complication: No
== END 2023-12-28 14:01 | disposition home or self-care (01) ==
LOC: ED 13:40 → MS3 14:26
PROVIDERS: Anesthesiology; Admitting Provider Urology; Emergency Provider Emergency Medicine; PCP Nurse Practitioner Family; Visit Provider Urology
PROC: (CPT 52332; principal; 2023-12-28 11:50)
DX: N20.1 Calculus of ureter (principal); I10 Essential (primary) hypertension; E06.3 Autoimmune thyroiditis; Z79.899 Other long term (current) drug therapy; Z79.890 Hormone replacement therapy; F17.220 Nicotine dependence, chewing tobacco, uncomplicated
CPT/HCPCS: 52344; 52352; 00910; 36415; 74018; 74176; 76000; 80048; 84443; 93005; 96361; 96374; 96375; 96376; 99221; 99283; J7030; J7120; A4216; C1769; G0378; J2405

== ENCOUNTER → 2024-01-28 | Outpatient (CLI) | payer BC, SELFPAY ==
--- NOTE | 2024-01-28 | CALC_PTH ---
PATIENT: PABLITO BACA LOC: [facility] U#:[id number] AGE/SX: 28/M ROOM: RE01/28/[address]: Dr. Hosea Walls MD : 1995 BED: DIS: 01/28/2024 SPEC #: [id number] RECD: 01/29/24 07:27 STATUS: BLAIR EVAN #: [id number] CORIE: 01/28/24 00:[address]: Hosea Walls DEPT: SURGICAL PATHOLOGY RECD BY: Aleisha Angulo ENTERED: 01/29/24 07:28 SP TYPE: Calculi OTHR DR: THOR Jarrett Tissues: CALCULI Procedures: Surgery Specimen Level I HEADER OPERATION: Not noted PRE-OP DIAGNOSIS: N20.1 TISSUE SUBMITTED: Calculi GROSS DIAGNOSIS A fragment of stone clinically urinary calculus (gross only). 02/01/2024 COMMENT The calculus is submitted in its entirety for chemical stone analysis. The results from this study will be reported separately. GROSS DESCRIPTION Received without fixative labeled with the patient's name and designated stone analysis. The specimen consists of a fragment of black stone measuring 0.3 x 0.2 x 0.2 cm. The entire specimen is submitted for stone analysis. 02/01/2024 CPT: 45997
[2024-02-10 10:09] LABS: Ca Oxalate, Dihydrate 30 % (.); Ca Oxalate, Monohydrate 70 % (.); Size 4x4 mm (.)
== END | disposition home or self-care (01) ==
LOC: LABSPEC 16:20
PROVIDERS: PCP Nurse Practitioner Family; Referring Provider Urology; Visit Provider Urology
DX: N20.1 Calculus of ureter (principal)
CPT/HCPCS: 82360; 88300